=== PATIENT | male | born 1985 | race Caucasian/White ===

== ENCOUNTER 2017-06-27 00:14 | Inpatient (IN) ==
--- NOTE | 2017-06-27 00:52 | Emergency Department Note ---
Disposition Clinical Impression: Acute psychosis, Methamphetamine abuse, Suicidal ideation Disposition: Admitted As Inpatient Condition: Fair Time of Disposition: 02:46 Psych HPI - General Chief Complaint: ED Psychiatric Symptoms Stated Complaint: Psych complaints/paranoid Time Seen by Provider: 06/27/17 00:52 Source: patient Mode of arrival: ambulatory Limitations: no limitations Nursing Notes Reviewed: Yes Vital Signs Reviewed: Yes - History of Present Illness HPI Narrative: 31-year-old male history of methamphetamine abuse Suboxone use, he is brought in today by his stepdad, apparently he having bizarre behavior worsening for the last month or so, the last few days has had increasingly paranoid behavior, delusions and hallucinations, the patient works that he has had suicidal ideation but no clear plan, he is paranoid and admits to this, he thinks that people are trying to get him he thinks that his stepfather may be a murderer, I spoke with his stepfather he states that his and the patient's girlfriend noticed that he is having bizarre delusions walking around at home with a knife , they are concerned that he has been increasingly violent and agitated, on the way over to the hospital, they got him Lopez's and he meticulously done through the medial stating that he thinks that there was poison in his hamburger , that he has not used methamphetamine for a few days, they deny any history of psychiatric illness. Pt complaint: suicidal ideation Onset (ago): week(s) Duration: intermittent History of similar episodes: Yes Improves with: none Worsens with: none Context: recent drug abuse Alleged intoxication: No Associated Psychiatric Symptoms: suicidal ideation, racing thoughts, auditory hallucinations, visual hallucinations Associated symptoms: Reports: denies other symptoms. Denies: confusion, headache, shortness of breath Treatments prior to arrival: none - Related Data Home Medications Medication Instructions Recorded Confirmed Buprenorphine HCl [Subutex] 16 mg SL DAILY 06/27/17 06/27/17 Allergies Allergy/AdvReac Type Severity Reaction Status Date / Time No Known Allergies Allergy Verified 06/30/15 13:48 All systems ED: reviewed and negative except as stated. Review of Systems: As Per HPI Constitutional: Denies: fever, chills Eyes: Denies: eye pain ENT ED: Denies: ear pain Cardiovascular: Denies: chest pain, palpitations Respiratory: Denies: cough, dyspnea Gastrointestinal: Denies: abdominal pain, nausea Genitourinary: Denies: urgency, dysuria Musculoskeletal: Denies: back pain Integumentary: Denies: rash, abrasion Neurological: Denies: headache, weakness Psychiatric: Reports: as per HPI, anxiety, suicidal thoughts, auditory hallucinations, visual hallucinations. Denies: depression, homicidal thoughts Endocrine: Denies: fatigue Past Medical History - Past Medical History Attestation: Yes The following information was validated with the patient. Source: patient Medical history: Reports: no medical history, other Psychiatric history: Reports: anxiety - Social History Smoking Status: Current every day smoker Smokeless Tobacco Status: No Alcohol use: Reports: none Drug use: Reports: methamphetamine, IV Drug Use Physical Exam - General Limitations: no limitations General appearance: alert, anxious - Head Head exam: atraumatic, normocephalic - Eye Eye exam: Present: normal appearance, PERRL - ENT ENT exam: normal exam, normal oropharynx - Neck Neck exam: Present: normal inspection, full ROM - Chest Chest inspection: Present: normal inspection, symmetric chest wall rise - Respiratory Respiratory exam: Present: normal lung sounds bilaterally. Absent: respiratory distress - Cardiovascular Cardiovascular exam: Present: regular rate, normal rhythm - Abdominal Exam Abdominal exam: Present: soft. Absent: Non-Tender - Neurological Exam Neurological exam: Present: alert, oriented X3, CN II-XII intact - Psychiatric Psychiatric exam: Present: depressed, agitated, flat affect, suicidal ideation. Absent: normal affect, normal mood - Expanded Psychiatric Exam Expanded psych exam: Present: poor eye contact, pressured speech, delusional, paranoid, restlessness, loose associations, uncooperative, auditory hallucinations, visual hallucinations Course Course Narrative: 31-year-old male presents with bizarre behavior, during his exam he is endorsing suicidal ideation and hallucinations, paranoid behavior appears disheveled, is agitated, making poor eye contact volition, he has many negative and positive symptoms of schizophrenia or bipolar with psychotic features, also may be methamphetamine abuse, at this time a pink slip was performed with the patient I believe is a threat for self-harm plan is for psychiatric evaluation - Reevaluation(s) Reevaluation #1: Admitted to Dr Dillard for hallucinations, thamphetamine abuse, suicidal ideation , possible psychosis Time: 02:47 Vital Signs Temperature 97.7 F 06/27/17 00:15 Pulse Rate 95 06/27/17 00:15 Respiratory Rate 16 06/27/17 00:15 Blood Pressure 129/78 06/27/17 00:15 O2 Sat by Pulse Oximetry 100 06/27/17 00:15 Temperature 98.2 F 06/27/17 03:26 Pulse Rate 86 06/27/17 03:10 Respiratory Rate 18 06/27/17 03:26 Blood Pressure 122/70 06/27/17 03:26 O2 Sat by Pulse Oximetry 100 06/27/17 03:10 Oxygen Delivery Oxygen Delivery Room Air Psych - Differential Diagnosis Likely: acute psychosis, suicidal ideation - Lab Data Result diagrams: 06/27/17 00:58 06/27/17 00:58 Lab Results 06/27/17 06/27/17 06/27/17 Range/Units 00:48 00:48 00:58 WBC 7.8 (4.3-11.1) K/mcL RBC 4.91 (4.19-5.50) M/mcL Hgb 14.9 (12.9-16.9) g/dL Hct 44.4 (37.5-50.1) % MCV 90.4 (83.0-100.0) fL MCH 30.3 (28.0-33.3) pg MCHC 33.6 (31.6-35.5) g/dL RDW 11.6 (11.5-14.5) % Plt Count 228 (140-400) K/mcL MPV 9.1 L (9.4-12.4) fL Immature Gran % 0.1 (0-4) % Seg Neutrophils % 64.8 % Lymphocytes % 29.8 % Monocytes % 4.7 % Eosinophils % 0.3 % Basophils % 0.3 % Neutrophils # 5.1 (1.6-8.9) K/mcL Lymphocytes # 2.3 (0.6-4.6) K/mcL Monocytes # 0.4 (0.0-1.3) K/mcL Eosinophils # 0.0 (0.0-0.6) K/mcL Basophils # 0.0 (0.0-0.2) K/mcL Sodium (136-145) mEq/L Potassium (3.5-5.1) mEq/L Chloride (98-107) mEq/L Carbon Dioxide (23-29) mEq/L BUN (6-20) mg/dL Creatinine (0.70-1.30) mg/dL Est GFR ( Amer) (> 60) Est GFR (Non-Af Amer) (> 60) BUN/Creatinine Ratio (6-26) Glucose (70-105) mg/dL Calculated Osmolality (280-300) Calcium (8.6-10.3) mg/dL Urine Color Yellow (Yellow) Urine Clarity Clear (Clear) Urine pH 7.0 (5.0-8.0) pH Units Ur Specific [place] > 1.030 H (1.010-1.025) Urine Protein Trace (Neg-Trace) mg/dL Urine Glucose (UA) Normal (Normal) mg/dL Urine Ketones 15 H (Negative) mg/dL Urine Blood Negative (Negative) Urine Nitrite Negative (Negative) Urine Bilirubin Small H (Negative) Urine Urobilinogen Normal (Normal) mg/dL Ur Leukocyte Esterase Negative (Negative) Urine Microscopic RBC 3-5 H (0-3) per hpf Urine Microscopic WBC 3-5 H (0-3) per hpf Ur Squamous Epith Cells Moderate H (None-Few) per lpf Urine Bacteria None Seen (None-Few) per hpf Hyaline Casts None Seen (None-Few) per lpf Salicylates (15.0-30.0) mg/dL Urine Opiates Screen Negative (Fadhki=623) ng/mL Acetaminophen (10-30) mcg/mL Ur Barbiturates Screen Negative (Skprsi=718) ng/mL Ur Phencyclidine Scrn Negative (Cutoff=25) ng/mL Ur Amphetamines Screen Positive H (Jmvnkt=6697) ng/mL U Benzodiazepines Scrn Negative (Tctczd=333) ng/mL Urine Cocaine Screen Negative (Cutoff= 300) ng/mL U Marijuana (THC) Screen Positive H (Cutoff = 50) ng/mL Ethyl Alcohol (0-10) mg/dL 06/27/17 Range/Units 00:58 WBC (4.3-11.1) K/mcL RBC (4.19-5.50) M/mcL Hgb (12.9-16.9) g/dL Hct (37.5-50.1) % MCV (83.0-100.0) fL MCH (28.0-33.3) pg MCHC (31.6-35.5) g/dL RDW (11.5-14.5) % Plt Count (140-400) K/mcL MPV (9.4-12.4) fL Immature Gran % (0-4) % Seg Neutrophils % % Lymphocytes % % Monocytes % % Eosinophils % % Basophils % % Neutrophils # (1.6-8.9) K/mcL Lymphocytes # (0.6-4.6) K/mcL Monocytes # (0.0-1.3) K/mcL Eosinophils # (0.0-0.6) K/mcL Basophils # (0.0-0.2) K/mcL Sodium 137 (136-145) mEq/L Potassium 3.8 (3.5-5.1) mEq/L Chloride 101 (98-107) mEq/L Carbon Dioxide 29 (23-29) mEq/L BUN 13 (6-20) mg/dL Creatinine 0.71 (0.70-1.30) mg/dL Est GFR ( Amer) > 60 (> 60) Est GFR (Non-Af Amer) > 60 (> 60) BUN/Creatinine Ratio 18 (6-26) Glucose 90 (70-105) mg/dL Calculated Osmolality 284 (280-300) Calcium 9.4 (8.6-10.3) mg/dL Urine Color (Yellow) Urine Clarity (Clear) Urine pH (5.0-8.0) pH Units Ur Specific [place] (1.010-1.025) Urine Protein (Neg-Trace) mg/dL Urine Glucose (UA) (Normal) mg/dL Urine Ketones (Negative) mg/dL Urine Blood (Negative) Urine Nitrite (Negative) Urine Bilirubin (Negative) Urine Urobilinogen (Normal) mg/dL Ur Leukocyte Esterase (Negative) Urine Microscopic RBC (0-3) per hpf Urine Microscopic WBC (0-3) per hpf Ur Squamous Epith Cells (None-Few) per lpf Urine Bacteria (None-Few) per hpf Hyaline Casts (None-Few) per lpf Salicylates < 5.0 L (15.0-30.0) mg/dL Urine Opiates Screen (Dbvwsz=898) ng/mL Acetaminophen < 1.0 L (10-30) mcg/mL Ur Barbiturates Screen (Dsxrze=162) ng/mL Ur Phencyclidine Scrn (Cutoff=25) ng/mL Ur Amphetamines Screen (Fajooc=2346) ng/mL U Benzodiazepines Scrn (Ckaiqt=943) ng/mL Urine Cocaine Screen (Cutoff= 300) ng/mL U Marijuana (THC) Screen (Cutoff = 50) ng/mL Ethyl Alcohol < 10 (0-10) mg/dL Psychiatric Medical Clearance - Medical Clearance Checklist Does the patient have a NEW psychiatric condition?: Yes Any abnormalities indicating possible medical illness?: No Any history of medical issues?: No Medical History: Acute psychosis (Acute) Methamphetamine abuse (Acute) Suicidal ideation (Acute) Acute anxiety (Inactive) Hepatitis C (Inactive) Heroin abuse (Inactive) Itching (Inactive) Polysubstance abuse (Inactive) Rash (Inactive) No Social History Section defined Any abnormal vital signs prior to transfer?: No Current Vitals: Last Vital Signs Temp 98.2 F 06/27/17 03:26 Pulse 86 06/27/17 03:10 Resp 18 06/27/17 03:26 BP 122/70 06/27/17 03:26 Pulse Ox 100 06/27/17 03:10 Is the patient intoxicated or cognitively impaired?: No Psychiatric Lab Panel: Drug Levels and Toxicity 06/27/17 06/27/17 00:48 00:58 Urine Opiates Screen Negative Acetaminophen < 1.0 L Ur Barbiturates Screen Negative Ur Phencyclidine Scrn Negative Ur Amphetamines Screen Positive H U Benzodiazepines Scrn Negative Urine Cocaine Screen Negative U Marijuana (THC) Screen Positive H Ethyl Alcohol < 10 Any abnormalities on the physical exam?: No Any abnormal labs?: Yes Abnormal Labs: Abnormal lab results MPV 9.1 fL (9.4-12.4) L 06/27/17 00:58 Ur Specific [place] > 1.030 (1.010-1.025) H 06/27/17 00:48 Urine Ketones 15 mg/dL (Negative) H 06/27/17 00:48 Urine Bilirubin Small (Negative) H 06/27/17 00:48 Urine Microscopic RBC 3-5 per hpf (0-3) H 06/27/17 00:48 Urine Microscopic WBC 3-5 per hpf (0-3) H 06/27/17 00:48 Ur Squamous Epith Cells Moderate per lpf (None-Few) H 06/27/17 00:48 Salicylates < 5.0 mg/dL (15.0-30.0) L 06/27/17 00:58 Acetaminophen < 1.0 mcg/mL (10-30) L 06/27/17 00:58 Ur Amphetamines Screen Positive ng/mL (Fekzxw=8467) H 06/27/17 00:48 U Marijuana (THC) Screen Positive ng/mL (Cutoff = 50) H 06/27/17 00:48 Does the patient require durable medical equiptment?: No Is the patient ambulatory?: Yes Is the patient a fall risk?: No Has the patient been medically cleared?: Yes Any acute medical condition require Tx prior to transfer?: Yes Attestation Statement - Attestation Attestation: I, Joshua Blanc MD, personally evaluated this patient and discussed their management with the resident physician. I reviewed the resident's note and agree with the documented findings, medical decision making, and plan of care. 31-year-old male presents to the emergency department with a history of drug abuse but presents complaining of increasing agitation and anxiety and paranoia for about the past month. For the past 4 or 5 days patient has been having hallucinations. He has been very paranoid and has been walking around the house with a knife in his hand. Family reports that they have become afraid that he is going to hurt him. Patient does admit to some suicidal ideation but denies homicidal ideation. No suicide attempt or plan. No prior history of psychosis. On examination patient is a well-developed thin male in no acute distress. He is alert and oriented 3. There is no cyanosis or diaphoresis. Patient does appear extremely anxious. Breath sounds are clear and equal bilaterally. Heart regular rate and rhythm. Abdomen soft and nontender with normal bowel sounds. No gross focal neurological deficits. Patient has multiple extensive tattoos. Labs reviewed. Patient medically cleared for psychiatric evaluation. He was evaluated in the emergency department by the [address] psychiatry service and is being admitted to the psychiatric unit.
[2017-06-27 01:02] LABS: Bilirubin,Urine Small (Negative); Blood,Urine Negative (Negative); Clarity,Urine Clear (Clear); Color,Urine Yellow (Yellow); Glucose,Urine (UA) Normal (Normal); Ketones,Urine 15 mg/dL (Negative); Leukocyte Esterase,Urine Negative (Negative); Nitrite,Urine Negative (Negative); Protein,Urine Trace mg/dL (Neg-Trace); Specific Gravity,Urine > 1.030 (1.010-1.025); Urobilinogen,Urine Normal (Normal)
[2017-06-27 01:05] LABS: Bacteria,Urine None Seen per hpf (None-Few); Hyaline Casts,Urine None Seen per lpf (None-Few); Squamous Epithelial Cell,Urine Moderate per lpf (None-Few)
[2017-06-27 01:08] LABS: Amphetamine Screen,Urine Positive ng/mL (Cutoff=1000); Barbiturate Screen,Urine Negative ng/mL (Cutoff=200); Benzodiazepines Screen,Urine Negative ng/mL (Cutoff=200); Cannabinoid Screen,Urine Positive ng/mL (Cutoff = 50); Cocaine Screen,Urine Negative ng/mL (Cutoff= 300); Opiate Screen,Urine Negative ng/mL (Cutoff=300); Phencyclidine Screen,Urine Negative ng/mL (Cutoff=25)
[2017-06-27 01:08] LABS: Basophils % 0.3 %; Eosinophils % 0.3 %; Hematocrit 44.4 % (37.5-50.1); Hemoglobin 14.9 g/dL (12.9-16.9); Immature Granulocytes % 0.1 % (0-4); Lymphocytes # 2.3 K/mcL (0.6-4.6); Lymphocytes % 29.8 %; Mean Corpuscular HGB Conc 33.6 g/dL (31.6-35.5); Mean Corpuscular Hemoglobin 30.3 pg (28.0-33.3); Mean Corpuscular Volume 90.4 fL (83.0-100.0); Mean Platelet Volume 9.1 fL (9.4-12.4); Monocytes # 0.4 K/mcL (0.0-1.3); Monocytes % 4.7 %; Neutrophils # 5.1 K/mcL (1.6-8.9); Platelet Count 228 K/mcL (140-400); Red Blood Count 4.91 M/mcL (4.19-5.50); Red Cell Distribution Width 11.6 % (11.5-14.5); Segmented Neutrophils % 64.8 %
[2017-06-27 01:19] LABS: BUN/Creatinine Ratio 18 (6-26); Blood Urea Nitrogen 13 mg/dL (6-20); Calcium 9.4 mg/dL (8.6-10.3); Carbon Dioxide 29 mEq/L (23-29); Chloride 101 mEq/L (98-107); Glucose 90 mg/dL (70-105); Osmolality,Calculated 284 (280-300); Potassium 3.8 mEq/L (3.5-5.1); Sodium 137 mEq/L (136-145); eGFR For African Americans > 60 (> 60); eGFR For Non-African Americans > 60 (> 60)
[2017-06-27 01:20] LABS: Acetaminophen < 1.0 mcg/mL (10-30); Ethanol < 10 mg/dL (0-10); Salicylate < 5.0 mg/dL (15.0-30.0)
[2017-06-27] MEDS ORDERED: Ziprasidone injection 20 MG/ML VIAL IM ONE (02:43)
[2017-06-27] MEDS ORDERED: Water for inj. (sterile) 10 ML IV ONE (02:57)
[2017-06-27] MEDS ORDERED: traZODone 50 MG TABLET PO PRN (03:01)
[2017-06-27] MEDS ORDERED: Haloperidol Lactate 5 MG/ML VIAL IM PRN (03:01)
[2017-06-27] MEDS ORDERED: *HR* LORazepam 2 MG/ML VIAL IM PRN (03:01)
[2017-06-27] MEDS ORDERED: MOM Conc 10 ML UD.LIQ PO PRN (03:01)
[2017-06-27] MEDS ORDERED: Mag Hydrox/Al Hydrox/Simeth 30 ML UDC PO PRN (03:01)
[2017-06-27] MEDS ORDERED: hydrOXYzine pamoate 25 MG CAPSULE PO PRN (03:01)
[2017-06-27] MEDS ORDERED: *HR* LORazepam 1 MG TABLET PO PRN (03:01)
[2017-06-27] MEDS ORDERED: Acetaminophen 325 MG TABLET PO PRN (03:01)
[2017-06-27] MEDS ORDERED: cloNIDine HCl 0.1 MG TABLET PO PRN (03:04)
--- NOTE | 2017-06-27 15:49 | Psychiatry History & Physical ---
Date of Encounter: 06/27/17 Time of Encounter: 15:05 History of Present Illness Medicare Admission Attestation: For traditional Medicare patients the provided hospital inpatient services are reasonable and necessary and in the case of services not specified as inpatient -only under 42 CFR 419.22 (n), that they are appropriately provided as inpatient services in accordance 42 CFR 412.3. For Critical Access Hospital the patient may reasonably be expected to be discharged or transferred to a hospital within 96 hours after admission to the Critical Access Hospital. Admitted From: Home Plans for Post Hospital Care: Home History of Present Illness: Mr. Germain is a 31 year old male who was admitted via the emergency room after reported concerns of hurting himself, but more so paranoid delusions that his family was out to get him. He thought his food was being poisoned by his family and that they wanted to have him committed; "they were out to get me". It was reported that he thought his stepfather was a murderer and the patient was carrying a knife around the house to protect himself. Patient's family stated he had been having very bizarre behavior for the last week. Patient denies that he was threatening to hurt anybody but states that he has been paranoid that people are out to get him and that he did think his food was poisoned, but not now. Patient tells me, "I'm going through withdrawal off my Subutex". He states that he has been using methamphetamine for the past year and was getting paranoid thoughts from it. He does see and acknowledge this. He does realize that he thought his food was poisoned that he is feeling less paranoid now. He understands the people his family might have been afraid of him but he states that he is afraid of them and thinks that they are out to get him and still does to a slight degree. He thinks that they are trying to get him committed to the hospital and that they were successful in getting in here. He states that the paranoid is going away, but is feeling anxious and irritable at this point time secondary to the subtext withdrawal. He denies any history of mental health problems but records show that he had been taking Celexa 10 mg. He tells me, "I was prescribed that for a minute and stopped taking it. Not sure why they gave it to me. He denies any depression or anxiety. Denies any auditory or visual hallucinations. He denies any history of hurting himself or anybody else. Past Med Surg Social Fam HX - Past Medical History Medical history: no medical history, other - Past Psychiatric History Psychiatric history: Reports: no psych history (He denies any history of treatment but had an active Rx for Celexa He also takes Subutex 16 mg q day for Opiate Dependency. ) Past psychiatric history details: Denies Family psychiatric history: Unknown Family Psychiatric History Details: Mother has a reported problem with depression, the patient believes Family History of Suicide: None - Past Surgical History Surgical History: no surgical history - Social History Smoking Status: Current every day smoker Smokeless Tobacco Status: No Alcohol use: none Drug use: opiates, methamphetamine, IV Drug Use Additional substance use detail: Currently being treated for the past 15 months for opiate addiction. He takes Subutex 16 mg/24 hour. We are trying to get this verfired by the pharmacy to potentially allow him to take "home meds" while on the unit to prevent withdraw from the medication and treatment. 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 ) Current living situation: Home - Independent Activity Level: Independent ambulation Recent Out of Country Travel Within the Last 8 Weeks: No - Family History Mother History Unknown: Yes Adopted: [place]: Yamila Murphy Age: 60 Family Member Ethnicity: Non- Living Status: Still Living Hx Family Cardiac Disorders: No Hx Family Respiratory Disorders: No Hx Family Cancer: No Hx Family GI Disorders: No Hx Family Genitourinary Disorders: No Hx Family Endocrine Disorder: No Hx Family Musculoskeletal Disorders: No Hx Family Neuromuscular Disorders: No Hx Family Neurologic Disorders: No Hx Family HEENT Disorders: No Hx Family Autoimmune Disorders: No Hx Family Reproductive Disorders: No Hx Family Psychosocial Disorders: No Hx Family Medical Disorders: No Medications & Allergies Buprenorphine HCl [Subutex] 16 mg SL DAILY 06/27/17 [History] Citalopram Hydrobromide [Celexa] 10 mg PO DAILY 06/27/17 [History] 3 Allergy/AdvReac Type Severity Reaction Status Date / Time No Known Allergies Allergy Verified 06/30/15 13:48 Review of Systems Constitutional: Denies: fever, chills, weakness, weight change Eyes: Denies: eye pain, vision change Ears, Nose, Throat: Denies: ear pain, throat pain, dental pain, hearing loss, congestion Mental Status Exam Patient orientation: Yes Person, Yes Time, Yes Place, Yes Circumstance Level of alertness: Alert, Follows commands Patient appearance: Unkempt, Disheveled, Thin Additional observations: poor dentition Behavior: anxious, restless, distractible Psychomotor activity: Agitated Eye contact: Fleeting Contact Mood description: Anxious Affect description: anxious Speech pattern: Normal rate, Normal rhythm, Normal tone Speech volume: Normal Thought process: Intact, Circumstantial, Perseveration (on his opiate withdraw) , Jenners Thought content: Yes Paranoid delusion Attention span: Unable to Focus Memory description: Grossly Intact Patient reliability: Questionable Historian Intelligence estimate: Average Judgment: Poor Insight: Minimal Exam - HEENT Head exam IM: Present: atraumatic, normocephalic Results - Vital Signs Vital signs: Temp Pulse Resp BP Pulse Ox 97.0 F L 107 18 97/65 100 06/27/17 09:00 06/27/17 09:00 06/27/17 09:00 06/27/17 09:00 06/27/17 03:10 - Labs Labs: Laboratory Last Values WBC 7.8 K/mcL (4.3-11.1) 06/27/17 00:58 RBC 4.91 M/mcL (4.19-5.50) 06/27/17 00:58 Hgb 14.9 g/dL (12.9-16.9) 06/27/17 00:58 Hct 44.4 % (37.5-50.1) 06/27/17 00:58 MCV 90.4 fL (83.0-100.0) 06/27/17 00:58 MCH 30.3 pg (28.0-33.3) 06/27/17 00:58 MCHC 33.6 g/dL (31.6-35.5) 06/27/17 00:58 RDW 11.6 % (11.5-14.5) 06/27/17 00:58 Plt Count 228 K/mcL (140-400) 06/27/17 00:58 MPV 9.1 fL (9.4-12.4) L 06/27/17 00:58 Immature Gran % 0.1 % (0-4) 06/27/17 00:58 Seg Neutrophils % 64.8 % 06/27/17 00:58 Lymphocytes % 29.8 % 06/27/17 00:58 Monocytes % 4.7 % 06/27/17 00:58 Eosinophils % 0.3 % 06/27/17 00:58 Basophils % 0.3 % 06/27/17 00:58 Neutrophils # 5.1 K/mcL (1.6-8.9) 06/27/17 00:58 Lymphocytes # 2.3 K/mcL (0.6-4.6) 06/27/17 00:58 Monocytes # 0.4 K/mcL (0.0-1.3) 06/27/17 00:58 Eosinophils # 0.0 K/mcL (0.0-0.6) 06/27/17 00:58 Basophils # 0.0 K/mcL (0.0-0.2) 06/27/17 00:58 Sodium 137 mEq/L (136-145) 06/27/17 00:58 Potassium 3.8 mEq/L (3.5-5.1) 06/27/17 00:58 Chloride 101 mEq/L (98-107) 06/27/17 00:58 Carbon Dioxide 29 mEq/L (23-29) 06/27/17 00:58 BUN 13 mg/dL (6-20) 06/27/17 00:58 Creatinine 0.71 mg/dL (0.70-1.30) 06/27/17 00:58 Est GFR ( Amer) > 60 (> 60) 06/27/17 00:58 Est GFR (Non-Af Amer) > 60 (> 60) 06/27/17 00:58 BUN/Creatinine Ratio 18 (6-26) 06/27/17 00:58 Glucose 90 mg/dL (70-105) 06/27/17 00:58 Calculated Osmolality 284 (280-300) 06/27/17 00:58 Calcium 9.4 mg/dL (8.6-10.3) 06/27/17 00:58 Urine Color Yellow (Yellow) 06/27/17 00:48 Urine Clarity Clear (Clear) 06/27/17 00:48 Urine pH 7.0 pH Units (5.0-8.0) 06/27/17 00:48 Ur Specific [place] > 1.030 (1.010-1.025) H 06/27/17 00:48 Urine Protein Trace mg/dL (Neg-Trace) 06/27/17 00:48 Urine Glucose (UA) Normal mg/dL (Normal) 06/27/17 00:48 Urine Ketones 15 mg/dL (Negative) H 18 00:48 Urine Blood Negative (Negative) 06/27/17 00:48 Urine Nitrite Negative (Negative) 06/27/17 00:48 Urine Bilirubin Small (Negative) H 06/27/17 00:48 Urine Urobilinogen Normal mg/dL (Normal) 06/27/17 00:48 Ur Leukocyte Esterase Negative (Negative) 06/27/17 00:48 Urine Microscopic RBC 3-5 per hpf (0-3) H 06/27/17 00:48 Urine Microscopic WBC 3-5 per hpf (0-3) H 06/27/17 00:48 Ur Squamous Epith Cells Moderate per lpf (None-Few) H 06/27/17 00:48 Urine Bacteria None Seen per hpf (None-Few) 06/27/17 00:48 Hyaline Casts None Seen per lpf (None-Few) 06/27/17 00:48 Salicylates < 5.0 mg/dL (15.0-30.0) L 06/27/17 00:58 Urine Opiates Screen Negative ng/mL (Pucswo=200) 06/27/17 00:48 Acetaminophen < 1.0 mcg/mL (10-30) L 06/27/17 00:58 Ur Barbiturates Screen Negative ng/mL (Meveza=203) 06/27/17 00:48 Ur Phencyclidine Scrn Negative ng/mL (Cutoff=25) 06/27/17 00:48 Ur Amphetamines Screen Positive ng/mL (Aoztmn=7007) H 06/27/17 00:48 U Benzodiazepines Scrn Negative ng/mL (Dxxfrt=897) 06/27/17 00:48 Urine Cocaine Screen Negative ng/mL (Cutoff= 300) 06/27/17 00:48 U Marijuana (THC) Screen Positive ng/mL (Cutoff = 50) H 06/27/17 00:48 Ethyl Alcohol < 10 mg/dL (0-10) 06/27/17 00:58 - Impressions Patient is not a reliable historian stating that he has never had a history of mental health treatment but being prescribed Celexa. It would seem at this point time that he is having/had acute psychosis probably secondary to amphetamine use/intoxication. Collateral information will be gathered from his family as he has signed consent forms for his mother, stepfather and girlfriend. He is denying any psychotic symptoms at this time but still appears to have some mild paranoia in question whether his thoughts are delusional or reality-based. Assessment and Plan (1) Acute psychosis Current visit: Yes Status: Acute Plan: Admit inpatient for safety and stabilization, Close observation, Suicide Precautions per unit protocol, Encourage participation in unit milieu, Group Therapy, Monitor sleep, Monitor appetite, Family/Supportive other meeting (I've requested interviews with his family) Risks, benefits, side effects, alternatives discussed w/pt: Yes Patient agreeable to treatment: Yes (At this point in time, yes, but did not sign in voluntary.) Plans for Post Hospital Care: Home Estimated Length of Stay (Days): 3 (2) Methamphetamine abuse Current visit: Yes Status: Acute Plan: Admit inpatient for safety and stabilization, Close observation, Suicide Precautions per unit protocol, Group Therapy, Monitor sleep, Monitor appetite Risks, benefits, side effects, alternatives discussed w/pt: Yes Patient agreeable to treatment: Yes (Patient made aware that there are PRN meds for withdraw S/S) Plans for Post Hospital Care: Home Estimated Length of Stay ( Days): 3
[2017-06-27] MEDS: *HR* Buprenorphine HCl 8 MG TAB.SUBL SL SCH (20:48)
[2017-06-28] MEDS: *HR* Buprenorphine HCl 8 MG TAB.SUBL SL SCH ×2 (09:20→20:44)
--- NOTE | 2017-06-28 09:55 | Psychiatry Progress Note ---
Date of Encounter: 06/28/17 Time of Encounter: 09:25 Subjective Interval history: I spoke to the patient and he told me "I feel a lot better". The Subutex was able to get approved in pharmacy and patient was restarted on it last night as is no longer experiencing opiate withdrawal. He states he slept well last night , no longer having muscle cramps or nausea. He tells me that he is "starting to feel replenished". By being here on the unit, he is no longer having thoughts of a paranoid or delusional nature and states that that was "all because the Meth". He stated that he was paranoid and felt the paranoia coming on more more with the more Meth he was using. He knew it was not reality, but came from his mind being filled with drugs and not thinking clearly. He denies any withdrawal. His mood is stable and his thoughts are very linear/logical/ reality-based now with no paranoia no suicidal homicidal ideation, no auditory or visual hallucinations. He states that his girlfriend does not use Meth and, since he has been off now for a week, he will be able to stay away from it. He also realizes that his depression and anxiety are drug-related, as well as related to some mental health/trauma stuff that happened in the past that he needs treatment for. He wants to get outpatient treatment arranged and will talk to the perinatal social worker today. He has no other complaints. Objective: Exam Patient orientation: Yes Person, Yes Time, Yes Place, Yes Circumstance Level of alertness: Alert Patient appearance: Unkempt Behavior: calm Psychomotor activity: Normal Eye contact: Fleeting Contact Mood description: Anxious Affect description: congruent with mood Speech pattern: Normal rate, Normal rhythm, Normal tone Speech volume: Normal Thought process: Logical (More linear and logical than yesterday) Thought content: Yes Intact Judgment: Fair Insight: Partial Results - Vital Signs Vital Signs: Temp Pulse Resp BP Pulse Ox 98.6 F 94 16 109/79 100 06/27/17 21:00 06/27/17 21:00 06/27/17 21:00 06/27/17 21:00 06/27/17 03:10 Assessment and Plan (1) Acute psychosis Current visit: Yes Status: Acute Plan: Continue hospitalization, Close observation, Group Therapy, Monitor sleep Risks, benefits, side effects, alternatives discussed w/pt: Yes Patient agreeable to treatment: Yes (At this point in time, yes, but did not sign in voluntary.) (2) Methamphetamine abuse Current visit: Yes Status: Acute Risks, benefits, side effects, alternatives discussed w/pt: Yes Patient agreeable to treatment: Yes (Patient made aware that there are PRN meds for withdraw S/S) Consult Discharge Plan - Plan Referrals: [facility] [Outside] - 07/14/17 3:00 pm (The above appointment is with Stanislav Villanueva. When you come to your first appointment, you will be completing paperwork, meeting with a counselor, and developing a treatment plan. You will receive follow- up appointments for on-going services , which could include community support, mental health and substance abuse counseling, groups/partial hospitalization programming, and psychiatric medication management. Please bring her photo ID and insurance card here first appointment.) Paulino Richey MD [Non-Partnered Physician] - 07/19/17 10:15 am Prescriptions: hydrOXYzine pamoate [HydrOXYzine Pamoate] 25 mg PO TID PRN 30 Days #90 capsule PRN Reason: Anxiety Nicotine Gum [Nicorette gum] 4 mg BC Q2H PRN 30 Days #90 gum PRN Reason: Nicotine Cravings traZODone [TraZODone] 50 mg PO HS PRN 30 Days #30 tablet PRN Reason: Insomnia
[2017-06-28] MEDS: Nicotine 2 MG GUM BC PRN (15:53)
[2017-06-29] MEDS: *HR* Buprenorphine HCl 8 MG TAB.SUBL SL SCH (08:20)
[2017-06-29 08:22] VITALS: BP 97/65
[2017-06-29] MEDS: Nicotine 2 MG GUM BC PRN (12:26)
--- NOTE | 2017-06-29 12:45 | Discharge Summary ---
Date of Encounter: 06/29/17 Time of Encounter: 12:30 Diagnosis - Discharge Diagnosis (1) Acute psychosis Status: Acute (2) Methamphetamine abuse Status: Acute Medications - Discharge Medications Prescriptions: hydrOXYzine pamoate [HydrOXYzine Pamoate] 25 mg PO TID PRN 30 Days #90 capsule PRN Reason: Anxiety Nicotine Gum [Nicorette gum] 4 mg BC Q2H PRN 30 Days #90 gum PRN Reason: Nicotine Cravings traZODone [TraZODone] 50 mg PO HS PRN 30 Days #30 tablet PRN Reason: Insomnia Buprenorphine HCl [Subutex] 16 mg SL DAILY 06/27/17 [History] Buprenorphine HCl [Subutex] 8 mg SL BID tab.subl 06/29/17 [Rx] Nicotine Gum [Nicorette gum] 4 mg BC Q2H PRN 30 Days #90 gum 06/29/17 [Rx] hydrOXYzine pamoate [HydrOXYzine Pamoate] 25 mg PO TID PRN 30 Days #90 capsule 06/29/17 [Rx] traZODone [TraZODone] 50 mg PO HS PRN 30 Days #30 tablet 06/29/17 [Rx] 3 Allergy/AdvReac Type Severity Reaction Status Date / Time No Known Allergies Allergy Verified 06/30/15 13:48 Results - Impressions Patient's use of Methamphetamine was causing his psychosis which has now resolved. He has made plans to remain sober from abusing methampheamine and has the support of his girlfriend and family to do this. He has follow up appointments in the community for outpatient care. Provider Date of admission: 06/27/17 02:59 Primary care physician: PCP NONE Assessment and Plan - Patient/Caregiver Discharge Instructions Activity: resume usual activities as tolerated Diet: regular diet - Follow up Plan Follow up with: [facility] [Outside] - 07/14/17 3:00 pm (The above appointment is with Stanislav Villanueva. When you come to your first appointment, you will be completing paperwork, meeting with a counselor, and developing a treatment plan. You will receive follow- up appointments for on-going services , which could include community support, mental health and substance abuse counseling, groups/partial hospitalization programming, and psychiatric medication management. Please bring her photo ID and insurance card here first appointment.) Paulino Richey MD [Non-Partnered Physician] - 07/19/17 10:15 am Functional capacity at discharge: independent ambulation Overall status at discharge: Stable Disposition: Home, Self-Care Hospital Course Hospital course: Mr. Germain is a 31 year old male who was admitted via the emergency room after sustained use of methamphetamine and becoming psychotic a very paranoid from its use. It was reported that he was very erratic in his behavior prior to admission. He was paranoid,refusing to eat food and drink water thinking that others were poisoning him and that his stepfather was trying to murder him. It was reported that he had been carrying a knife to protect himself but there are no reports that he attempted to use the knife to hurt anyone. Once the patient was on the unit he reported feeling a little less paranoid and was eating and drinking without issue. He is in a program getting buprenorhrine for treatment as a heroin addict and was experiencing withdrawal symptoms on the unit not having the medication, Subutex. His girlfriend was able to find his pill bottle Subutex and brought it to the unit. Pharmacy evaluated the Subutex, documented/verified via the prescription bottles and OARRS. Patient was allowed to start on Subutex 8 mg PO BID as continuation of his buprenorhrine treatment. Patient stated that the Subutex helped greatly and he was not experiencing any more nausea muscle cramps and diarrhea after 2 doses of medication. He also stated that his paranoia was going away completely. He stated that the paranoia came from his use of methamphetamine; he had never experienced that before. After being off the methamphetamine for 7 to 10 days, he was sure that he had cleared it from his system and denied any craving and was not going to go back to using it. He was not feeling paranoid and was no longer having delusional thoughts of the stepfather, or anybody, trying to hurt him. He did acknowledge that prior to admission, he was very paranoid and recalled everything that happened in regards to his erratic behavior, not eating and drinking. He wanted set up with outpatient mental health in order to continue to get treatment for his mental health issues. He had talked briefly about some traumatic experiences he had previous experienced and wanting to get help to resolve those issue. He understood that it was probably this unresolved trauma that was causing his drive to self medicate with illicit drugs. The was going to continue his buprenorhrine treatment at his physician's office in [place]. He was sleeping without issue, eating fine, mood was stable, there was no agitation or anxiety. He was no longer elevated or delusional and denied any suicidal/homicidal ideation and was discharged from the unit with follow-up appointments outpatient. Time spent discussing smoking cessation with patient: 3 to 10 minutes Does patient wish to continue nicotine replacement upon disc: Yes - Time Spent with Patient Total time spent providing and/or coordinating discharge services: 20 min Less than 30 minutes Quality - Multiple Antipsychotics Patient discharged on 2 or more antipsychotic medications: No Procedures - Procedures Procedures: Medication Management, Crisis Stabilization, Supportive Therapy, Psychoeducational Therapy Mental Status Exam - Mental Status Exam Patient orientation: Yes Person, Yes Time, Yes Place, Yes Circumstance Level of alertness: Alert Patient appearance: Appropriate, Well Groomed Behavior: calm Psychomotor activity: Normal Eye contact: Maintains Eye Contact Mood description: Euthymic/stable Affect description: congruent with mood Speech pattern: Normal rate, Normal rhythm, Normal tone Speech Volume: Normal Thought process: Intact, Logical, Linear Thought Content: Yes Intact Judgment: Good Insight: Full
== END 2017-06-29 13:40 | disposition home or self-care (01) | DRG 773 ==
LOC: EMEROO 00:14 → 1ANU 02:59
PROVIDERS: ADMIT Psychiatry & Neurology Psychiatry; ATTEND Psychiatry & Neurology Psychiatry